=== PATIENT | female | born 1945 | race Caucasian/White ===

== ENCOUNTER 2023-12-15 10:11 | Emergency (ER) | payer MEDICARE, BC, SELFPAY ==
[2023-12-15 10:30] VITALS: BP 134/95
--- NOTE | 2023-12-15 12:46 | ED.GENMED ---
History of Present Illness
<BAYLEE Dee - Last Filed: 12/15/23 16:28>
General
Chief Complaint: Headache
Source: patient
Exam Limitations: none
Time Seen by Provider: 12/15/23 11:44
Nursing documentation reviewed up to this point in time: agreed with
Travel History
Have you had any contact with someone who has COVID-19?: No
Do you have any symptoms of coronavirus? Fever > 100 degrees, chills, cough, shortness of breath, sore throat, loss of taste or smell, muscle aches, or headache?: No
History of Present Illness
History of Present Illness:
Patient is a 78-year-old female with history of RA currently on low-dose steroids, diabetes who presents to the ER for evaluation. Patient reports she had a fall 3 weeks ago hit her right posterior head. She is not on blood thinners. At that time
she did not seek medical attention. She did speak with her family doctor and had a CAT scan about 2 weeks after. CAT scan was negative. She reports since hitting her head she has had intermittent left eye blurriness and feels dizzy and has
continued intermittent headaches. Blurry vision is associated with position changes with standing up lasts about 5-20 minutes. It was mostly in the morning. She denies any actual vision loss. She denies any blurry vision denies any difficulty
when looking to the extreme left or right.
When she describes dizziness she reports this feels more of a room spinning sensation sensation at denies any lightheadedness It last for about 5 minutes and then resolves. She denies any nausea. She reports the headache does go away with
Tylenol. She denies any light sensitivity, double vision. She denies any upper or lower extremity numbness tingling weakness.
She currently denies any symptoms presently.
Past History
<BAYLEE Dee - Last Filed: 12/15/23 16:28>
Past History
ED Past Medical History: HTN and NIDDM
ED Past Surgical History: Orthopedic (Left total hip and total knee replacement, cataract surgery)
Social History
Tobacco: Non-smoker
Alcohol: None
Drug: None
Personal:
Living: with family
Review of Systems
<BAYLEE Dee - Last Filed: 12/15/23 16:28>
Review of Systems
Allergies reviewed?: Yes
All Other Systems: ROS reviewed and negative except as documented in HPI and ROS
Constitutional: Reports no symptoms; Denies fever, fatigue or chills
EENT: Reports other (intermittent left eye blurred vision )
Respiratory: Reports no symptoms
Cardiac: Reports no symptoms
ABD/GI: Reports no symptoms
: Reports no symptoms
Musculoskeletal: Reports no symptoms
Skin: Reports no symptoms
Neurological: Reports dizzy and headache
Psychiatric: Reports no symptoms
Phy Exam
<BAYLEE Dee - Last Filed: 12/15/23 16:28>
General Physical Exam
General Presentation: no apparent distress
General age: appears stated age
General Skin: warm and dry
General Habitus: normal
General Mental: alert
General Hydration: appears well hydrated
Eye Exam
Eye Exam: PERRL, EOMI, conjunctiva normal and other (No eyelid drooping)
Able to obtain acuity?: Yes
Right 20/: 25
Left 20/: 25
Both 20/: 20
Eye Exam General: PERRL: bilateral and EOM intact: bilateral
Pupil Exam: Bilateral: round
Cardiovascular Exam
Cardiovascular Exam: regular rate/rhythm, no murmur and normal peripheral pulses
Pulmonary Exam
Pulmonary Exam: lungs clear and no respiratory distress
Neurological Exam
Neurological Exam: alert, oriented x3, no motor deficits, no sensory deficits and speech normal
[place] Coma Scale
Eye Opening: Spontaneous
Verbal Response: Oriented
Motor Response: Obeys Commands
GCS Total Score: 15
Musculoskeletal Exam
Musculoskeletal Exam: full ROM and other (nml inspection to head. mild tenderness to left temporal region )
Skin Exam
Skin Exam: normal color and warm/dry
Psychiatric Exam
Psychiatric Exam: normal mood/affect
<Belinda Zarate MD - Last Filed: 12/15/23 13:52>
[place] Coma Scale
GCS Total Score: 15
Course
<BAYLEE Dee - Last Filed: 12/15/23 16:28>
Orders/Labs/Results
Orders:
Orders
12/15/23 12:44
Visual Acuity- Treatment ONCE
12/15/23 12:46
Orthostatic VS- Treatment ONCE
12/15/23 13:50
Vital Signs- Treatment ONCE
Frequency: Once
Comment: temp please as well
12/15/23 14:03
ESR [Erythrocyte Sed Rate] Urgent
Abnormal Lab Results
12/15/23
14:03
ESR 28 H mm/hour
(0-20)
Vital Signs
Initial and Last Documented VS:
Initial Vital Signs
Pulse Resp BP Pulse Ox
78 20 134/95 98
12/15/23 10:30 12/15/23 10:30 12/15/23 10:30 12/15/23 10:30
Last Documented Vital Signs
Temp Pulse Resp BP Pulse Ox
98.1 F 66 20 134/80 97
12/15/23 14:03 12/15/23 14:03 12/15/23 10:30 12/15/23 14:03 12/15/23 14:03
Roof Slater consulted with Physician
Roof Slater consulted with physician?: Yes
Name of Physician Consulted: [email or web address]
<Belinda Zarate MD - Last Filed: 12/15/23 13:52>
Orders/Labs/Results
Orders:
Orders
12/15/23 12:44
Visual Acuity- Treatment ONCE
12/15/23 12:46
Orthostatic VS- Treatment ONCE
12/15/23 13:50
Vital Signs- Treatment ONCE
Frequency: Once
Comment: temp please as well
12/15/23 14:03
ESR [Erythrocyte Sed Rate] Urgent
Abnormal Lab Results
12/15/23
14:03
ESR 28 H mm/hour
(0-20)
Vital Signs
Initial and Last Documented VS:
Initial Vital Signs
Pulse Resp BP Pulse Ox
78 20 134/95 98
12/15/23 10:30 12/15/23 10:30 12/15/23 10:30 12/15/23 10:30
Last Documented Vital Signs
Temp Pulse Resp BP Pulse Ox
98.1 F 66 20 134/80 97
12/15/23 14:03 12/15/23 14:03 12/15/23 10:30 12/15/23 14:03 12/15/23 14:03
<BAYLEE Dee - Last Filed: 12/15/23 16:28>
MDM/Problems Addressed
Differential Diagnosis Includes:
Not limited to head injury, postconcussion syndrome, less likely temporal arteritis
MDM/Problems Addressed:
Patient is an 78-year-old female who I head injury 3 weeks ago not on thinners had an outpatient CAT scan which was negative. She presents to the ER for evaluation of intermittent headaches since. She also has had intermittent vertigo
dizziness/room spinning sensation and intermittent transient blurred vision. She reports the blurred vision is typical when she wakes up in the morning and stands blurry vision only from her left eye lasting approximate 5-20 minutes and resolves on
its own. She currently is asymptomatic. She presents awake alert no acute distress denies any recent fevers is afebrile. She denies any associated nausea vomiting.
Patient was evaluated by ED attending. Mild tenderness over left temporal region. Sed rate minimally elevated at 28 however patient does have a history of RA, she is on 4 mg of steroids and her verifying specialist is presently trying to wean her off of
prednisone. Patient is asymptomatic now denies any other symptoms including jaw claudication. Patient is also not describing vision loss.
She is nontoxic-appearing Case reviewed with ophthalmology Dr. Shah . With review of patient's case exam visual acuity which is normal this is unlikely temporal arteritis. Joint family discussion with patient and who is a physician
agree we will hold off on increasing steroids however will have patient follow-up with her apprentice funeral director as well as neurology for further evaluation of transient blurred vision from left eye since head injury 3 weeks ago. She is nontoxic stable
for discharge home with a neurologic exam
<BAYLEE Dee - Last Filed: 12/15/23 16:28>
*Critical Care Note
Total Time (30-74mins, 75-104mins- exclusive of procedures): Not Applicable
ED Attending Note
<BAYLEE Dee - Last Filed: 12/15/23 16:28>
-
Portions of this chart may have been created with voice recognition software.� Occasional wrong word or��sound alike� substitutions may have occurred due to the inherent limitations of voice recognition software.
<Belinda Zarate MD - Last Filed: 12/15/23 13:52>
ED Attending Note
Patient seen and examined by attending physician: Yes
I performed the substantive portion of visit, reviewed & personally made and approve the management plan that is documented in note by myself or AMELIA.: Yes
ED Attending Note:
78-year-old female who, as described above, suffered a fall about 3 weeks ago and hit her head without loss of consciousness. Patient is not on anticoagulation. Subsequent CAT scan reportedly NAD. However, patient continues to report intermittent
headaches, left-sided associated with dizziness described as spinning and episodes of blurry vision from the left eye only with position changes. This is intermittent, and most prominent in the morning lasting 5 minutes or so and then resolving
completely. No associated numbness, tingling, nausea, vomiting, ataxia, chest pain, shortness of breath. Patient denies double vision or amaurosis fugax. On exam, cranial nerves II through XII, [id number] normal, EOMI, nystagmus. She does
have tenderness palpation of the left temporal artery area. Sed rate pending. Symptoms may be postconcussive in nature.
Discharge Plan
Departure
Patient Disposition: Home (Routine Discharge)
Date of Disposition: 12/15/23
Time of Disposition: 16:21
Patient with high blood pressure during this ER visit?: Yes
Condition: Fair
Covid-19: Not Applicable
Discharge Problem:
Head injury, Visual disturbance
Instructions: Head Injury in Adults (DC), BLOOD PRESSURE
Prescriptions:
No Action
metformin 500 mg Tablet
500 mg PO DAILY
levothyroxine [Synthroid] 88 mcg Tablet
88 mcg PO DAILY
prednisone 1 mg Tablet
2 mg PO DAILY
aspirin 81 mg Tablet,Chewable
81 mg PO DAILY
ezetimibe 10 mg Tablet
10 mg PO DAILY
metoprolol tartrate 25 mg Tablet
25 mg PO DAILY
cholecalciferol (vitamin D3) [Vitamin D3] 50 mcg (2,000 unit) Tablet
50 mcg PO DAILY
travoprost 0.004 % Drops
1 drp BOTH EYES HS
tamsulosin 0.4 mg Capsule
0.4 mg PO DAILY
fluoxetine 20 mg Tablet
10 mg PO DAILY
Probiotic 3 billion cell Capsule
3,000 mmu cells PO DAILY
cephalexin 500 mg capsule
500 mg PO Q6H 10 Days Qty: 40 0RF
amoxicillin-pot clavulanate 875-125 mg tablet
1 tab PO BID Qty: 14 0RF
Referrals:
Wing Santos MD [Active] -
Modesta Huston DO [Family Provider] -
Activity Restrictions/Additional Instructions:
As discussed please follow-up with your apprentice funeral director for further evaluation of intermittent blurry vision from left eye. Also as discussed please follow-up with neurology. Return to the ER however if any worsening of symptoms
Interventions
Interventions:
*Risk Screen - Suicide Last Done: 12/15/23 12:07
*General Assessment Last Done: 12/15/23 12:07
*Neglect/Abuse Screening Last Done: 12/15/23 12:07
*ED COVID-19 Vaccine History Last Done: 12/15/23 12:07
ED- Neurological Assessment Last Done: 12/15/23 12:09
[2023-12-15 13:06] VITALS: BP 139/80; BP 144/84; BP 148/85; PULSE 76; PULSE 83; PULSE 85
[2023-12-15 14:03] VITALS: BP 134/80
[2023-12-15 14:23] LABS: Erythrocyte Sed Rate 28 mm/hour (0-20)
== END 2023-12-15 17:07 | disposition home or self-care (01) ==
LOC: EMR 10:11
PROVIDERS: EMERGENCY PHYSICIAN Emergency Medicine; FAMILY PHYSICIAN Family Medicine
DX: S09.90XA Unspecified injury of head, initial encounter (principal); H53.8 Other visual disturbances; W19.XXXA Unspecified fall, initial encounter
CPT/HCPCS: 99283; 85652

== ENCOUNTER 2024-02-07 06:43 | Inpatient (IN) | payer MEDICARE, BC, SELFPAY ==
--- NOTE | 2024-01-03 10:15 | CM ---
Patient is scheduled for an elective R TKR on 02/07/24. Spoke with patient prior to surgery via telephone. Introduced role of Orthopedic Navigator. Patient reports that she lives alone in a two story home. There are two steps to enter and she has a
first floor set up. She currently functions independently and uses a cane. She also has a rolling walker and raised toilet seat. She has had VN services after a prior TKR and THR (done at another facility). PCP is Modesta Huston.
Discussed orthopedic program and post surgical plans. Reviewed anticipated length of stay and that goal is for her to return home at discharge. Also reviewed outpatient PT. Patient is in agreement with tentative plan and will be staying with her
daughter in [place] for a week . Daughter's home is two story (with one or two steps to enter) but patient will stay on the first floor. She will go directly to outpatient PT.
Patient will complete online education.
Plan: Orthopedic Navigator will remain available to assist with the care of patient and will reassess discharge needs after surgery.
[2024-01-17 13:13] VITALS: BMI 29.9
[2024-01-17 14:13] VITALS: BMI 29.9
[2024-01-17 14:19] LABS: Hematocrit 38.6 % (37.0-47.0); Hemoglobin 12.7 g/dL (12.0-16.0); Mean Corp Hgb Conc. 32.9 g/dL (33.0-37.0); Mean Corpuscular Hgb 30.3 pg (27.0-31.0); Mean Corpuscular Volume 92.1 fL (81.0-99.0); Mean Platelet Volume 9.1 fL (7.4-10.4); Platelet Count 251 10^3/uL (130-400); Red Blood Cell Count 4.19 10^6/uL (4.20-5.40); Red Cell Dist. Width 13.4 % (11.5-14.5); White Blood Cell Count 6.6 10^3/uL (4.8-10.8)
[2024-01-17 14:50] LABS: Glycohemoglobin (HgbA1c) 6.1 % (4.0-5.6)
[2024-01-17 15:29] LABS: ALT (SGPT) 28 U/L (0-35); AST (SGOT) 29 U/L (14-36); Alkaline Phosphatase 77 U/L (38-126); Blood Urea Nitrogen 19 mg/dl (7-17); Calcium 9.9 mg/dl (8.4-10.2); Carbon Dioxide 24 mmol/L (22-30); Chloride 106 mmol/L (98-107); Estimated Creatinine Clearance 69 ml/min; Glucose 88 mg/dl (70-99); Potassium 4.7 mmol/L (3.5-5.1); Sodium 137 mmol/L (135-145); Total Bilirubin 0.4 mg/dl (0.2-1.3); Total Protein 6.7 g/dl (6.3-8.2); eGFR > 60.00
[2024-02-07] VITALS (10 sets, daily range): BP systolic 116–183; BP diastolic 63–98
--- NOTE | 2024-02-07 07:56 | W.PN.ORTHO ---
Today's Communication / Plan
-
D/c when clinically stable.
Assessment
.
Distal Motor Intact: Yes
Dressing:
Clean, dry and intact.
Assessment:
R knee OA s/p R TKA w/ Dr Figueroa 02/07/24
DVT prophylaxis - ASA, b/l venous foot pumps
HTN - resume BB - monitor BP
Iap-uwyooeh-oggqlinkw diabetes, A1c 6.1 - monitor BS
- Resume Metformin
- Add SSI during admission
GERD - add Protonix
Balance difficulties and ambulatory dysfunction - on fall precautions
Rheumatoid arthritis, on multidrug regimen - continue Prednisone, Leflunomide
- Hold Simponi until discussed with surgeon post-op
Hypercholesterolemia
Venous varicosities
Chronic peripheral edema
Remote diverticulitis
Nephrolithiasis
Vertigo
Ankylosing spondylitis
Hypothyroidism
Overactive bladder
History of recurrent UTIs
Skin cancer, status post excision
Glaucoma
Osteoporosis
Depression
Anxiety
Plan
.
Surgery / Date: R TKA w/ Dr Figueroa 02/07/24
DVT Prophylaxis: Aspirin
Activity:
Out of bed.
PT/OT
Discharge Plan: Home w/ Outpatient PT
Subjective
.
.:
Patient examined resting in her room.
R knee pain starting w/ nerve block wearing off - just medicated w/ Tylenol #3.
Denies any other new significant complaints.
Vital Signs and Labs
.
Vital Signs and Labs:
Lab Results
01/17/24 13:01
01/17/24 13:01
Physical Exam
-
HEENT: No pallor, cyanosis, or jaundice. Throat clear.
NECK: Supple. No JVD.
RESPIRATORY: Lungs clear to auscultation.
CVS: S1, S2 normal. RRR.� No murmur, rub or gallop.
ABDOMEN: Soft, non-tender. No distension.
EXTREMITIES: Strength equal, no calf pain with palpation/dorsiflexion. Calves soft.
DINING ROOM SUPERVISOR: AOx3. No focal deficits. ophthalmic dispenser grossly intact
[2024-02-07 08:22] LABS: Glucose - Point of Care 102 mg/dl (70-99)
[2024-02-07] MEDS: CELEBREX 200 MG PO (08:22)
[2024-02-07] MEDS: NORMOSOL-R 1000 IV ×2 (08:22→12:06)
[2024-02-07] MEDS: TYLENOL 650 MG PO (08:22)
[2024-02-07 11:34] LABS: Glucose - Point of Care 90 mg/dl (70-99)
--- NOTE | 2024-02-07 12:30 | PTCARENOTE ---
Pt received from the PACU via bed. Transport was w/o incident. Ptis AAOx3, HRR, Lungs clear, resp. easy. Pulse ox 95%Ra. Pt's right knee with Aquacell dressing C/D/I, no drainage noted. Pt instructed on plan of care. Pt verbalized understanding of
instructions. VSS, Pt is afebrile. Call moscoso is within reach.
[2024-02-07 13:24] LABS: Glucose - Point of Care 116 mg/dl (70-99)
[2024-02-07] MEDS: DELTASONE 3 MG PO (13:49)
[2024-02-07] MEDS: HIPREX 2 GRAM PO (13:51)
[2024-02-07] MEDS: TORADOL IV (13:51)
[2024-02-07] MEDS: NOVOLOG FLEXPEN-MODERATE RESISTANCE SC (13:52)
[2024-02-07] MEDS: LIDOCAINE 4% PATCH 2 PATCH TOPICAL (13:52)
[2024-02-07] MEDS: SYNTHROID PO (13:52)
[2024-02-07] MEDS: VITAMIN D3 (cholecalciferol) PO (13:55)
[2024-02-07] MEDS: GLUCOPHAGE PO (13:55)
[2024-02-07] MEDS: VITAMIN D3 (cholecalciferol) 75 MCG PO (14:03)
[2024-02-07] MEDS: PROTONIX 40 MG PO (14:05)
[2024-02-07] MEDS: VISBIOME 1 CAP PO (14:05)
[2024-02-07] MEDS: TYLENOL #3 2 TABLET PO ×3 (14:05→22:33)
[2024-02-07] MEDS: PROZAC 10 MG PO (14:06)
[2024-02-07] MEDS: NEURONTIN 200 MG PO ×2 (18:11→20:52)
[2024-02-07] MEDS: ZETIA 10 MG PO (18:11)
[2024-02-07] MEDS: ANCEF 5 IV (18:12)
[2024-02-07] MEDS: NOVOLOG FLEXPEN-MODERATE RESISTANCE 1 UNITS SC (18:21)
[2024-02-07 18:22] LABS: Glucose - Point of Care 161 mg/dl (70-99)
[2024-02-07] MEDS: ASPIRIN 325 MG PO (18:22)
[2024-02-07] MEDS: COLACE 100 MG PO (20:44)
[2024-02-07] MEDS: SENOKOT 17.1999999999999993 MG PO (20:44)
[2024-02-07] MEDS: TORADOL 10 MG IV (20:44)
[2024-02-07] MEDS: BACTROBAN 2% OINTMENT 1 APPLIC NASAL (20:44)
[2024-02-07] MEDS: TRAVATAN Z 1 DROP BOTH EYES (20:50)
[2024-02-07 22:31] LABS: Glucose - Point of Care 237 mg/dl (70-99)
[2024-02-07] MEDS: TYLENOL #3 PO (22:33)
[2024-02-08] MEDS: ANCEF 5 IV (00:04)
[2024-02-08 03:11] VITALS: BP 140/80
[2024-02-08] MEDS: SYNTHROID 88 MCG PO (06:06)
[2024-02-08 07:33] LABS: Glucose - Point of Care 141 mg/dl (70-99)
[2024-02-08 07:43] VITALS: BP 136/79
[2024-02-08] MEDS: NOVOLOG FLEXPEN-MODERATE RESISTANCE SC (07:51)
[2024-02-08] MEDS: ASPIRIN 325 MG PO (07:53)
[2024-02-08] MEDS: CELEBREX 200 MG PO (07:53)
[2024-02-08] MEDS: DELTASONE 3 MG PO (07:53)
[2024-02-08] MEDS: PROTONIX 40 MG PO (07:54)
[2024-02-08] MEDS: SENOKOT 17.1999999999999993 MG PO (07:54)
[2024-02-08] MEDS: GLUCOPHAGE 500 MG PO (07:54)
[2024-02-08] MEDS: VITAMIN D3 (cholecalciferol) 75 MCG PO (07:55)
[2024-02-08] MEDS: VISBIOME 1 CAP PO (07:55)
[2024-02-08] MEDS: PROZAC 10 MG PO (07:56)
[2024-02-08] MEDS: LOPRESSOR 25 MG PO (07:56)
[2024-02-08] MEDS: NEURONTIN 200 MG PO (07:56)
[2024-02-08] MEDS: HIPREX 2 GRAM PO (07:57)
[2024-02-08] MEDS: COLACE 100 MG PO (07:57)
[2024-02-08] MEDS: LIDOCAINE 4% PATCH 2 PATCH TOPICAL (07:57)
[2024-02-08] MEDS: BACTROBAN 2% OINTMENT 1 APPLIC NASAL (07:57)
[2024-02-08] MEDS: TYLENOL #3 1 TABLET PO (08:08)
--- NOTE | 2024-02-08 08:28 | CM ---
Addendum entered by Park Glez 02/08/24 09:56:
Patient did well in therapy. She has no concerns about going home and has updated her daughter. She would like her daughter to be present for discharge instructions; RN aware.
Original Note:
Reviewed chart and held rounds with PT, OT and nursing. Patient admitted as planned for elective R TKR. Met with patient at bedside. Confirmed information previously obtained for assessment. Also discussed discharge plans. The plan is for patient to
go to her daughter's home at discharge. Patient will go directly to outpatient PT and will come to [facility]. She has an appointment scheduled for Wednesday, 02/08.
Patient has a rolling walker, cane, raised toilet seat and her daughter rented her a reclining lift chair.
She will use [facility] pharmacy for discharge prescriptions.
[2024-02-08 09:18] VITALS: BP 124/66; PULSE 85; O2SAT 97
[2024-02-08 09:44] VITALS: BP 124/71; PULSE 81; O2SAT 95
--- NOTE | 2024-02-08 10:37 | W.PN.ORTHO ---
Today's Communication / Plan
-
D/c today since clinically stable, did well w/ PT and OT.
Assessment
.
Distal Motor Intact: Yes
Dressing:
Small area of old incisional bleeding. Dressing otherwise C/D/I.
Assessment:
R knee OA s/p R TKA w/ Dr Figueroa 02/07/24
DVT prophylaxis - ASA, b/l venous foot pumps
HTN - resumed BB - BPs stable
Yho-hosihng-jtbzcctwj diabetes, A1c 6.1 - BS readings improving w/ resumption of home Metformin, minimal SSI
GERD - added Protonix
Balance difficulties and ambulatory dysfunction - on fall precautions
Rheumatoid arthritis, on multidrug regimen - continue Prednisone, Leflunomide
- Hold Simponi until discussed with surgeon post-op
Hypercholesterolemia
Venous varicosities
Chronic peripheral edema
Remote diverticulitis
Nephrolithiasis
Vertigo
Ankylosing spondylitis
Hypothyroidism
Overactive bladder
History of recurrent UTIs
Skin cancer, status post excision
Glaucoma
Osteoporosis
Depression
Anxiety
Plan
.
Surgery / Date: R TKA w/ Dr Figueroa 02/07/24
DVT Prophylaxis: Aspirin
Activity:
Out of bed.
PT/OT
Discharge Plan: Home w/ Outpatient PT
Subjective
.
.:
Patient resting comfortably in her chair this AM.
R knee pain well tolerated w/ current pain meds.
Denies any new significant complaints.
Eager for potential d/c today.
Vital Signs and Labs
.
Vital Signs and Labs:
Lab Results
01/17/24 13:01
01/17/24 13:01
Temp Pulse Resp BP Pulse Ox
97.9 F 83 16 136/79 95
02/08/24 07:43 02/08/24 07:43 02/08/24 07:43 02/08/24 07:43 02/08/24 07:43
Non-invasive Hgb result: 11.1
Physical Exam
-
HEENT: No pallor, cyanosis, or jaundice. Throat clear.
NECK: Supple. No JVD.
RESPIRATORY: Lungs clear to auscultation.
CVS: S1, S2 normal. RRR.�
ABDOMEN: Soft, non-tender. No distension.
EXTREMITIES: Mild post-op R knee edema. Strength equal, no calf pain with palpation/dorsiflexion. Calves soft.
HOSPITAL STAFF PHARMACIST: AOx3. No focal deficits. diaper folder grossly intact
--- NOTE | 2024-02-08 10:48 | W.DS.TRANS ---
DC Summary - Lubricating Specialist
-
Discharge Instructions:
Sleep Apnea Risk Intermediate
Discharge Diagnosis/Procedures R knee OA s/p R TKA w/ Dr Figueroa 02/07/24
Diet Diabetic, Carb Controlled
Activity As tolerated,With Walker
Driving Restrictions Not until seen by your Dr
Bathing Restrictions OK to Shower
Other Services PT
Wound Care Dressing to be removed 1 week post-surgery.
[place] to be removed in 2 weeks at follow-up
appointment with surgeon's office.
Instructions:
Stand-Alone Forms: Total Hip/Knee Replacement D/C
Changes to Home Medications: Yes
Discharge Medications:
DC Medications w/original date entered in [facility]
ezetimibe 10 mg tablet 10 mg PO QPM High cholesterol 05/01/22
fluoxetine 20 mg tablet 10 mg PO DAILY Mental Health/Anxiety 05/01/22
lactobacillus combination no.4 3 billion cell capsule (Probiotic) 3,000 mmu cells PO DAILY Gastrointestinal issue 05/01/22
levothyroxine 88 mcg tablet (Synthroid) 88 mcg PO DAILY Thyroid 05/01/22
metformin 500 mg tablet 500 mg PO DAILY Diabetes 05/01/22
metoprolol tartrate 25 mg tablet 25 mg PO DAILY Blood pressure 05/01/22
prednisone 1 mg tablet 3 mg PO DAILY Anti-inflammatory 05/01/22
travoprost 0.004 % eye drops 1 drp BOTH EYES HS Eye condition 05/01/22
cholecalciferol (vitamin D3) 75 mcg (3,000 unit) tablet 75 mcg PO DAILY Supplement 01/17/24
mupirocin 2 % topical ointment 1 applic intranasal BID #1 tube 01/17/24
leflunomide 10 mg tablet 10 mg PO DAILY Autoimmune Disorder 01/20/24
acetaminophen 300 mg-codeine 30 mg tablet 1 - 2 tab PO Q6H PRN moderate-severe pain #30 tabs 02/08/24
acetaminophen 325 mg tablet 650 mg (2 x 325 mg) PO Q6H PRN mild pain #60 tabs 02/08/24
aspirin 325 mg tablet 325 mg PO DAILY #30 tabs 02/08/24
celecoxib 200 mg capsule 200 mg PO DAILY #14 caps 02/08/24
docusate sodium 100 mg capsule 100 mg PO BID #30 caps 02/08/24
gabapentin 100 mg capsule 200 mg (2 x 100 mg) PO TID neuropathic pain #30 caps 02/08/24
lidocaine 4 % topical patch 2 patch topical DAILY #30 ea 02/08/24
methenamine hippurate 1 gram tablet 2 g (2 x 1 gram) PO DAILY Urinary issue #0 tabs 02/08/24
ondansetron HCl 4 mg tablet 4 mg PO Q6H PRN nausea and vomiting #30 tabs 02/08/24
pantoprazole 40 mg tablet,delayed release 40 mg PO DAILY #30 tabs 02/08/24
sennosides 8.6 mg tablet (Senna Laxative) 17.2 mg (2 x 8.6 mg) PO BID #30 tabs 02/08/24
Home Medication Changes
acetaminophen 300 mg-codeine 30 mg tablet 1 - 2 tab PO Q6H PRN moderate-severe pain #30 tabs 02/08/24
acetaminophen 325 mg tablet 650 mg (2 x 325 mg) PO Q6H PRN mild pain #60 tabs 02/08/24
aspirin 325 mg tablet 325 mg PO DAILY #30 tabs 02/08/24
celecoxib 200 mg capsule 200 mg PO DAILY #14 caps 02/08/24
docusate sodium 100 mg capsule 100 mg PO BID #30 caps 02/08/24
gabapentin 100 mg capsule 200 mg (2 x 100 mg) PO TID neuropathic pain #30 caps 02/08/24
lidocaine 4 % topical patch 2 patch topical DAILY #30 ea 02/08/24
ondansetron HCl 4 mg tablet 4 mg PO Q6H PRN nausea and vomiting #30 tabs 02/08/24
pantoprazole 40 mg tablet,delayed release 40 mg PO DAILY #30 tabs 02/08/24
sennosides 8.6 mg tablet (Senna Laxative) 17.2 mg (2 x 8.6 mg) PO BID #30 tabs 02/08/24
Pending Results: No
[2024-02-08 11:02] VITALS: BP 108/69
[2024-02-08 11:58] LABS: Glucose - Point of Care 156 mg/dl (70-99)
[2024-02-08] MEDS: NOVOLOG FLEXPEN-MODERATE RESISTANCE 1 UNITS SC (11:58)
[2024-02-08] MEDS: PREVNAR 20 0.5 ML IM (11:59)
== END 2024-02-08 13:30 | disposition home or self-care (01) | DRG 470 ==
LOC: 2 SOUTH 06:43
PROVIDERS: ADMITTING PHYSICIAN Specialist; FAMILY PHYSICIAN Family Medicine
PROC: 0SRC0J9 Replacement of Right Knee Joint with Synthetic Substitute, Cemented, Open Approach (ICD-10-PCS; 2024-02-07)
DX: M17.11 Unilateral primary osteoarthritis, right knee (principal); I10 Essential (primary) hypertension; K21.9 Gastro-esophageal reflux disease without esophagitis; M06.9 Rheumatoid arthritis, unspecified; E78.00 Pure hypercholesterolemia, unspecified; E11.9 Type 2 diabetes mellitus without complications; Z79.84 Long term (current) use of oral hypoglycemic drugs; E03.9 Hypothyroidism, unspecified; F32.A Depression, unspecified; F41.9 Anxiety disorder, unspecified; H40.9 Unspecified glaucoma; I35.0 Nonrheumatic aortic (valve) stenosis; M81.0 Age-related osteoporosis without current pathological fracture; N32.81 Overactive bladder
CPT/HCPCS: 36415; 73560; 80053; 82962; 83036; 85027; 87070; 90677; 93005; 97110; 97116; 97162; 97166; 97530; 97535; C1713; C1776; G0009

== ENCOUNTER 2024-02-21 13:14 | Outpatient (RCR) | payer MEDICARE, BC, SELFPAY | END 2024-02-21 23:59 | disposition home or self-care (01) | LOC: RPT 13:14 | PROVIDERS: ATTENDING PHYSICIAN Specialist | DX: Z47.1 Aftercare following joint replacement surgery (principal); R26.2 Difficulty in walking, not elsewhere classified; M62.81 Muscle weakness (generalized); M25.561 Pain in right knee; Z96.651 Presence of right artificial knee joint | CPT/HCPCS: 97010; 97110; 97140; 97163; 97530 ==

== ENCOUNTER 2024-02-24 12:06 | Outpatient (RCR) | payer MEDICARE, BC, SELFPAY | END 2024-02-24 14:54 | disposition home or self-care (01) | LOC: RPT 12:06 | PROVIDERS: ATTENDING PHYSICIAN Specialist | DX: Z47.1 Aftercare following joint replacement surgery (principal); Z96.651 Presence of right artificial knee joint | CPT/HCPCS: 97010; 97110; 97530 ==

== ENCOUNTER → 2025-07-10 16:30 | Outpatient (REF) | payer MEDICARE, BC, SELFPAY ==
[2025-07-10 17:41] LABS: Urine Character Slightly Cloudy (Clear)
[2025-07-10 18:27] LABS: Urine Red Blood Cell 90-100 /HPF (0-2); Urine Urothelial Cell 0-2 /LPF (FEW)
== END ==
LOC: REG 16:30
PROVIDERS: ATTENDING PHYSICIAN Surgery; FAMILY PHYSICIAN Family Medicine
DX: N39.0 Urinary tract infection, site not specified (principal)
CPT/HCPCS: 81003; 81015; 87086

== ENCOUNTER → 2025-07-12 12:21 | Outpatient (REF) | payer MEDICARE, BC, SELFPAY ==
[2025-07-12 15:03] LABS: ALT (SGPT) 17 U/L (0-35); AST (SGOT) 25 U/L (14-36); Albumin 4.4 g/dl (3.5-5.0); Alkaline Phosphatase 69 U/L (38-126); Blood Urea Nitrogen 26 mg/dl (7-17); Calcium 10.2 mg/dl (8.4-10.2); Carbon Dioxide 23 mmol/L (22-30); Chloride 106 mmol/L (98-107); Glucose 71 mg/dl (70-99); Potassium 3.9 mmol/L (3.5-5.1); Sodium 138 mmol/L (135-145); Total Protein 7.5 g/dl (6.3-8.2); eGFR 56.25
== END ==
LOC: REG 12:21
PROVIDERS: ATTENDING PHYSICIAN Surgery; FAMILY PHYSICIAN Family Medicine
DX: N20.0 Calculus of kidney (principal); Z87.442 Personal history of urinary calculi
CPT/HCPCS: 36415; 80053

== ENCOUNTER → 2025-07-13 10:28 | Outpatient (REF) | payer MEDICARE, BC, SELFPAY | LOC: HWRAD 10:28 | PROVIDERS: ATTENDING PHYSICIAN Surgery; FAMILY PHYSICIAN Family Medicine | DX: Z87.442 Personal history of urinary calculi (principal) | CPT/HCPCS: 74176 ==